=== PATIENT | female | born 1980 | race African-American/Black ===

== ENCOUNTER 2017-11-08 18:46 | Emergency (ER) | payer SELFPAY | END 2017-11-08 22:17 | disposition home or self-care (01) | LOC: ERS 18:46 | DX: H10.9 Unspecified conjunctivitis (principal); F17.210 Nicotine dependence, cigarettes, uncomplicated | CPT/HCPCS: 99282 ==

== ENCOUNTER 2018-01-21 00:04 | Emergency (ER) | payer SELFPAY | END 2018-01-21 01:03 | disposition home or self-care (01) | LOC: ERS 00:04 | DX: L02.416 Cutaneous abscess of left lower limb (principal); F17.210 Nicotine dependence, cigarettes, uncomplicated | CPT/HCPCS: 99282 ==

== ENCOUNTER 2018-10-10 17:33 | Emergency (ER) | payer SELFPAY | END 2018-10-10 18:56 | disposition home or self-care (01) | LOC: ERS 17:33 | DX: J02.0 Streptococcal pharyngitis (principal); F17.210 Nicotine dependence, cigarettes, uncomplicated | CPT/HCPCS: 87430; 99283 ==

== ENCOUNTER 2019-02-09 01:36 | Emergency (ER) | payer SELFPAY ==
[2019-02-09] MEDS ORDERED: Morphine 4 MG/ML VIAL ONE (02:31)
[2019-02-09] MEDS ORDERED: Ondansetron PF 4 MG/2 ML Vial ONE (02:31)
[2019-02-09] MEDS ORDERED: Adacel (T-DAP) 0.5 ML SYRINGE ONE (02:31)
[2019-02-09] MEDS ORDERED: Lidocaine 1% PF 5 ML VIAL ONE (03:01)
[2019-02-09] MEDS ORDERED: HYDROcodone/Acetaminophen 5/325 mg Tablet ONE (03:48)
[2019-02-09] MEDS ORDERED: Ketorolac Tromethamine 30 MG/ML VIAL ONE (04:55)
[2019-02-09 07:34] LABS: #Basophils 0.1 thou/uL (0.0-0.2); #Lymphocytes 1.9 thou/uL (1.20-3.40); #Monocytes 0.5 thou/uL (0.11-0.59); #Neutrophils 7.4 thou/uL (1.40-6.50); %Basophils 0.7 % (0.0-1.0); %Eosinophils 0.2 % (0.0-10.0); %Lymphocytes 19.4 % (21.0-51.0); %Monocytes 4.8 % (0.0-10.0); %Neutrophils 74.9 % (42.0-75.0); Hemoglobin 12.1 g/dL (12.0-16.0); Mean Corpuscular HGB CONC 34.2 g/dL (32.0-36.0); Mean Corpuscular Volume 90.7 fL (78.0-98.0); Mean Platelet Volume 7.6 fL (7.4-10.4); Platelet Count 322 thou/uL (130-400); RBC Distribution Width 13.8 % (11.5-14.5); White Blood Cell (WBC) Count 9.9 thou/uL (4.8-10.8)
[2019-02-09 07:42] LABS: ALT (SGPT) 10 U/L (8-55); AST (SGOT) 14 U/L (5-34); Albumin 4.2 g/dL (3.5-5.0); Alkaline Phosphatase 63 U/L (40-110); Anion Gap 14 mmol/L (10-20); BUN (Urea Nitrogen) 7 mg/dL (7.0-18.7); Bilirubin, Total 0.3 mg/dL (0.2-1.2); Calc. Creatinine Clearance 0 mL/min (70-130); Calcium 9.2 mg/dL (7.8-10.44); Carbon Dioxide 21 mmol/L (22-29); Chloride 106 mmol/L (98-107); Estimated GFR-MDRD 84; Globulin 3.5 g/dL (2.4-3.5); Glucose 111 mg/dL (70-105); Potassium 3.4 mmol/L (3.5-5.1); Protein, Total 7.7 g/dL (6.0-8.3); Sodium 138 mmol/L (136-145)
--- NOTE | 2019-02-09 07:53 | RAD ---
Radiograph right elbow 4 views: HISTORY: 38-year-old female status post traumatic injury FINDINGS: No fracture identified. No dislocation. Suboptimal positioning of lateral view. If symptoms persist, follow-up is recommended in 5-7 days. Soft tissue swelling. IMPRESSION: No fracture identified.
--- NOTE | 2019-02-09 08:47 | RAD ---
RIGHT HUMERUS 2 VIEWS: HISTORY: Trauma, right hand pain. FINDINGS/IMPRESSION: The right humerus appears intact. POS: OFF
== END 2019-02-09 05:28 | disposition home or self-care (01) ==
LOC: ERS 01:36
DX: S01.112A Laceration without foreign body of left eyelid and periocular area, initial encounter (principal); S50.01XA Contusion of right elbow, initial encounter; F17.210 Nicotine dependence, cigarettes, uncomplicated; W19.XXXA Unspecified fall, initial encounter
CPT/HCPCS: 12011; 80053; 85025; 90471; 90715; 96361; 96374; 96375; J1885; J2001; J2270; J2405

== ENCOUNTER 2019-10-13 15:22 | Emergency (ER) | payer OTHER, SELFPAY ==
[2019-10-14 12:24] LABS: SARS-CoV-2 MS2 Positive; SARS-CoV-2 N Gene Negative; SARS-CoV-2 S Gene Negative; SARS-CoV-2 orf1ab Negative
== END 2019-10-13 15:55 | disposition home or self-care (01) ==
LOC: ERS 15:22
DX: Z20.828 Contact with and (suspected) exposure to other viral communicable diseases (principal); F17.210 Nicotine dependence, cigarettes, uncomplicated
CPT/HCPCS: 87635; 99283; U0003

== ENCOUNTER 2024-04-03 22:18 | Inpatient (IN) | payer OTHER ==
[2024-04-03 22:57] LABS: #Basophils 0.06 10x3/uL (0.0-0.2); %Basophils 0.9 % (0.0-1.0); %Eosinophils 6.9 % (0.0-10.0); %Lymphocytes 28.4 % (21.0-51.0); %Monocytes 13.3 % (0.0-10.0); %Neutrophils 50.2 % (42.0-75.0); Hematocrit 34.4 % (36.0-47.0); Hemoglobin 10.3 g/dL (12.0-16.0); Mean Corpuscular HGB CONC 29.9 g/dL (32.0-36.0); Mean Corpuscular Hemoglobin 23.1 pg (27.0-31.0); Mean Corpuscular Volume 77.1 fL (78.0-98.0); Mean Platelet Volume 9.2 fL (7.4-10.4); Platelet Count 447 10x3/uL (130-400); RBC Distribution Width 18.6 % (11.5-14.5); Red Blood Cell (RBC) Count 4.46 mill/uL (4.20-5.40)
[2024-04-03 23:16] LABS: ALT (SGPT) 15 U/L (8-55); AST (SGOT) 22 U/L (5-34); Alkaline Phosphatase 92 U/L (40-110); Anion Gap 13 mmol/L (10-20); BUN (Urea Nitrogen) 7 mg/dL (7.0-18.7); Bilirubin, Total 0.3 mg/dL (0.2-1.2); Calc. Creatinine Clearance 0 mL/min (70-130); Calcium 9.1 mg/dL (7.8-10.44); Carbon Dioxide 25 mmol/L (22-29); Chloride 107 mmol/L (98-107); Estimated GFR 89; Glucose 91 mg/dL (70-105); Potassium 3.6 mmol/L (3.5-5.1); Sodium 141 mmol/L (136-145)
[2024-04-03 23:22] LABS: Troponin I Less than 0.010 ng/mL (< 0.028)
[2024-04-04] MEDS ORDERED: Magnesium 2 GM/50 ML BAG (IN WATER) ONE (01:47)
[2024-04-04] MEDS ORDERED: predniSONE 20 MG TAB ONE (01:47)
[2024-04-04] MEDS ORDERED: Albuterol 2.5 MG (0.5 mL) NEB ONE (01:55)
[2024-04-04] MEDS ORDERED: Albuterol 2.5 MG (3 mL) NEB ONE (01:55)
[2024-04-04] MEDS ORDERED: Ipratropium/Albuterol 3 ML NEB ONE (01:55)
[2024-04-04 05:42] LABS: Troponin I Less than 0.010 ng/mL (< 0.028)
[2024-04-04] MEDS ORDERED: Ondansetron PF 4 MG/2 ML Vial IVP PRN ×2 (07:45→09:18)
[2024-04-04] MEDS ORDERED: Ondansetron ODT 4 MG TAB SL PRN (07:45)
[2024-04-04 08:33] VITALS: BMI 41.4
[2024-04-04] MEDS: Acetaminophen 325 MG TAB PO PRN (08:49)
[2024-04-04] MEDS: cefTRIAXone\\ROCEPHIN 2 GM in Sodium Chloride 0.9% 100 ML IVPB SCH (08:50)
[2024-04-04] MEDS ORDERED: Ondansetron ODT 4 MG TAB PO PRN (09:18)
[2024-04-04] MEDS ORDERED: Ipratropium Bromide 2.5 ml Neb NEB SCH (10:30)
[2024-04-04] MEDS: Ipratropium/Albuterol 3 ML NEB NEB SCH (10:30)
[2024-04-04] MEDS ORDERED: Albuterol 2.5 MG (0.5 mL) NEB NEB SCH (10:30)
[2024-04-04] MEDS: Azithromycin 500 MG in Sodium Chloride 0.9% 250 ML 250 ML IVPB SCH (10:36)
[2024-04-04] MEDS: Benzonatate 100 MG CAP PO PRN (10:36)
[2024-04-04] MEDS: predniSONE 20 MG TAB PO SCH (10:36)
[2024-04-04] MEDS: guaiFENesin/DM ER PO SCH ×2 (10:36→20:00)
[2024-04-04 12:33] LABS: Influenza A by NAA Not Detected (NotDetected); Influenza B by NAA Not Detected (NotDetected); RSV by NAA Not Detected (NotDetected); SARS-CoV-2 NAA Rapid Test Not Detected (NotDetected)
[2024-04-04 12:55] LABS: Free T4 (Free Thyroxine) 0.9 ng/dL (0.70-1.48); Thyroid Stimulating Hormone 0.4853 uIU/mL (0.35-4.94)
[2024-04-04] MEDS: Acetaminophen 500 MG TAB PO PRN (14:05)
[2024-04-04 15:05] LABS: Strep pneumo Urine Ag NEGATIVE (NEGATIVE)
[2024-04-04] MEDS: Famotidine 20 MG TAB PO SCH (20:00)
[2024-04-05 05:34] LABS: #Basophils 0.03 10x3/uL (0.0-0.2); %Basophils 0.4 % (0.0-1.0); %Eosinophils 0.7 % (0.0-10.0); %Lymphocytes 27.5 % (21.0-51.0); %Monocytes 13.1 % (0.0-10.0); Hematocrit 32.1 % (36.0-47.0); Hemoglobin 9.8 g/dL (12.0-16.0); Mean Corpuscular HGB CONC 30.5 g/dL (32.0-36.0); Mean Corpuscular Hemoglobin 23.1 pg (27.0-31.0); Mean Corpuscular Volume 75.7 fL (78.0-98.0); Mean Platelet Volume 9.5 fL (7.4-10.4); Platelet Count 430 10x3/uL (130-400); RBC Distribution Width 18.8 % (11.5-14.5); Red Blood Cell (RBC) Count 4.24 mill/uL (4.20-5.40)
[2024-04-05 06:37] LABS: ALT (SGPT) 12 U/L (8-55); AST (SGOT) 15 U/L (5-34); Albumin 2.7 g/dL (3.5-5.0); Alkaline Phosphatase 73 U/L (40-110); Anion Gap 11 mmol/L (10-20); BUN (Urea Nitrogen) 6 mg/dL (7.0-18.7); Bilirubin, Total 0.2 mg/dL (0.2-1.2); Calc. Creatinine Clearance 182 mL/min (70-130); Calcium 8.6 mg/dL (7.8-10.44); Carbon Dioxide 25 mmol/L (22-29); Chloride 108 mmol/L (98-107); Estimated GFR 105; Globulin 4.5 g/dL (2.4-3.5); Glucose 94 mg/dL (70-105); Potassium 3.8 mmol/L (3.5-5.1); Protein, Total 7.2 g/dL (6.0-8.3); Sodium 140 mmol/L (136-145)
[2024-04-05] MEDS: predniSONE 20 MG TAB PO SCH (08:09)
[2024-04-05] MEDS: cefTRIAXone\\ROCEPHIN 1 GM in Sodium Chloride 0.9% 100 ML IVPB SCH (08:10)
[2024-04-05] MEDS: FLU (Fluarix Triv) TS24-25(6MOS UP)/PF 45 MCG/0.5 ML Syringe IM ONE (08:10)
[2024-04-05 10:48] LABS: Legionella Urinary Ag Negative (Negative)
[2024-04-06 05:17] LABS: #Basophils 0.04 10x3/uL (0.0-0.2); %Basophils 0.6 % (0.0-1.0); %Eosinophils 2.5 % (0.0-10.0); %Lymphocytes 30.4 % (21.0-51.0); %Monocytes 13.9 % (0.0-10.0); %Neutrophils 52.3 % (42.0-75.0); Hematocrit 33.9 % (36.0-47.0); Hemoglobin 10.2 g/dL (12.0-16.0); Mean Corpuscular HGB CONC 30.1 g/dL (32.0-36.0); Mean Corpuscular Hemoglobin 23.3 pg (27.0-31.0); Mean Corpuscular Volume 77.6 fL (78.0-98.0); Mean Platelet Volume 9.1 fL (7.4-10.4); Platelet Count 452 10x3/uL (130-400); RBC Distribution Width 19.1 % (11.5-14.5); Red Blood Cell (RBC) Count 4.37 mill/uL (4.20-5.40)
[2024-04-06 05:27] LABS: Anion Gap 11 mmol/L (10-20); BUN (Urea Nitrogen) 8 mg/dL (7.0-18.7); Calc. Creatinine Clearance 177 mL/min (70-130); Calcium 8.8 mg/dL (7.8-10.44); Carbon Dioxide 28 mmol/L (22-29); Chloride 102 mmol/L (98-107); Estimated GFR 102; Glucose 88 mg/dL (70-105); Potassium 3.6 mmol/L (3.5-5.1); Sodium 137 mmol/L (136-145)
[2024-04-06 08:17] VITALS: TEMP 98.1
[2024-04-06] MEDS: Azithromycin 250 MG TAB PO SCH (11:06)
[2024-04-06 11:27] VITALS: BP 144/89
== END 2024-04-06 13:39 | disposition home or self-care (01) | DRG 194 ==
LOC: ERS 22:18 → T4-B 04-04 04:52 → OBSVTOIN 04-04 09:18
PROVIDERS: ADMIT Internal Medicine; ATTEND Internal Medicine
DX: J18.9 Pneumonia, unspecified organism (principal); J44.0 Chronic obstructive pulmonary disease with (acute) lower respiratory infection; Z68.41 Body mass index [BMI] 40.0-44.9, adult; R91.1 Solitary pulmonary nodule; R59.1 Generalized enlarged lymph nodes; E04.1 Nontoxic single thyroid nodule; F17.210 Nicotine dependence, cigarettes, uncomplicated; Z98.51 Tubal ligation status; E66.9 Obesity, unspecified; D86.2 Sarcoidosis of lung with sarcoidosis of lymph nodes; Z71.6 Tobacco abuse counseling
CPT/HCPCS: 0241U; 36415; 71045; 71275; 80048; 80053; 83880; 84439; 84443; 84484; 85025; 85379; 87449; 87899; 93005; 96365; 96372; G0378; J0456; J0696; J3475; J7050; J7512; J7611; J7620

== ENCOUNTER 2024-06-28 00:33 | Emergency (ER) | payer BC, SELFPAY ==
[2024-06-28 01:09] LABS: #Basophils 0.04 10x3/uL (0.0-0.2); %Basophils 0.6 % (0.0-1.0); %Eosinophils 6.4 % (0.0-10.0); %Lymphocytes 23.9 % (21.0-51.0); %Monocytes 14.2 % (0.0-10.0); %Neutrophils 54.8 % (42.0-75.0); Hematocrit 34.2 % (36.0-47.0); Hemoglobin 10.2 g/dL (12.0-16.0); Mean Corpuscular HGB CONC 29.8 g/dL (32.0-36.0); Mean Corpuscular Hemoglobin 22.9 pg (27.0-31.0); Mean Corpuscular Volume 76.7 fL (78.0-98.0); Mean Platelet Volume 8.9 fL (7.4-10.4); Platelet Count 446 10x3/uL (130-400); RBC Distribution Width 16.7 % (11.5-14.5); Red Blood Cell (RBC) Count 4.46 mill/uL (4.20-5.40)
[2024-06-28 01:21] LABS: ALT (SGPT) 9 U/L (Less than 34); AST (SGOT) 19 U/L (11-34); Albumin 3.2 g/dL (3.1-4.5); Alkaline Phosphatase 85 U/L (40-110); Anion Gap 13 mmol/L (10-20); BUN (Urea Nitrogen) 6 mg/dL (7.0-18.7); Bilirubin, Total 0.3 mg/dL (0.3-1.2); Calc. Creatinine Clearance 0 mL/min (70-130); Calcium 9.1 mg/dL (7.8-10.44); Carbon Dioxide 27 mmol/L (22-29); Chloride 104 mmol/L (98-107); Estimated GFR 89; Globulin 5.2 g/dL (2.4-3.5); Glucose 94 mg/dL (70-105); Potassium 4.1 mmol/L (3.5-5.1); Protein, Total 8.4 g/dL (6.0-8.3); Sodium 140 mmol/L (136-145)
[2024-06-28 01:27] LABS: Troponin I Less than 0.010 ng/mL (< 0.028)
[2024-06-28] MEDS ORDERED: Albuterol 2.5 MG (3 mL) NEB ONE (01:29)
[2024-06-28] MEDS ORDERED: Ipratropium Bromide 2.5 ml Neb ONE (01:30)
[2024-06-28] MEDS ORDERED: methylPREDNISolone Sod Succ/PF 125 MG/2 ML VIAL ONE (01:34)
[2024-06-28] MEDS ORDERED: Morphine 4 MG/ML VIAL ONE (03:27)
[2024-06-28] MEDS ORDERED: Albuterol 2.5 MG (0.5 mL) NEB ONE ×2 (04:44→05:41)
[2024-06-28] MEDS ORDERED: Ipratropium/Albuterol 3 ML NEB ONE ×2 (04:44→05:41)
[2024-06-28] MEDS ORDERED: Magnesium 2 GM/50 ML BAG (IN WATER) ONE (04:45)
== END 2024-06-28 07:12 | disposition home or self-care (01) ==
LOC: ERS 00:33
DX: J98.01 Acute bronchospasm (principal); J18.9 Pneumonia, unspecified organism; F17.210 Nicotine dependence, cigarettes, uncomplicated
CPT/HCPCS: 71045; 71260; 80053; 83880; 84484; 85025; 93005; 94640; 96374; 96375; J2270; J2919; J3475; J7611; J7620; J7644